=== PATIENT | female | born 1940 | race Caucasian/White ===

== ENCOUNTER → 2016-09-14 | Outpatient (CLI) | payer MEDICARE, BC ==
[2016-09-14 08:09] LABS: CH 30.2; CHCM 32.4; HCT 43.1 % (34.0-46.0); HDW 2.07; HGB 14.4 gm/dL (11.4-16.0); MCH 31.2 pg (25.0-35.0); MCHC 33.3 g/dL (31.0-37.0); MCV 93.5 fL (80.0-100.0); Mean Platelet Volume 6.7; RBC 4.61 m/uL (3.80-5.40); RDW 13.7 % (11.5-15.5); WBC 5.2 k/uL (3.8-10.6)
[2016-09-14 08:32] LABS: ALT 22 U/L (9-52); AST 22 U/L (14-36); Alkaline Phosphatase 77 U/L (38-126); Anion Gap 11 mmol/L; Blood Urea Nitrogen 27 mg/dL (7-17); Calcium 9.1 mg/dL (8.4-10.2); Carbon Dioxide 26 mmol/L (22-30); Chloride 103 mmol/L (98-107); Cholesterol 203 mg/dL (<200); Glucose 93 mg/dL (74-99); HDL Cholesterol 61 mg/dL (40-60); Non-African American GFR(MDRD) >60 (>60 ml/min/1.73 sqM); Sodium 140 mmol/L (137-145); Total Bilirubin 0.6 mg/dL (0.2-1.3); Triglycerides 101 mg/dL (<150)
== END | disposition home or self-care (01) ==
LOC: LABWHC1 07:00
PROVIDERS: ATTEND Internal Medicine
DX: E87.8 Other disorders of electrolyte and fluid balance, not elsewhere classified (principal); E78.4 Other hyperlipidemia; R53.83 Other fatigue
CPT/HCPCS: 36415; 80053; 80061; 85027

== ENCOUNTER → 2017-09-20 | Outpatient (CLI) | payer MEDICARE, BC ==
[2017-09-20 07:58] LABS: HCT 45.3 % (34.0-46.0); HGB 14.6 gm/dL (11.4-16.0); MCH 29.2 pg (25.0-35.0); MCHC 32.2 g/dL (31.0-37.0); MCV 90.5 fL (80.0-100.0); Mean Platelet Volume 6.8; Platelet Count 284 k/uL (150-450); RBC 5.01 m/uL (3.80-5.40); RDW 13.9 % (11.5-15.5); WBC 5.4 k/uL (3.8-10.6)
[2017-09-20 08:25] LABS: ALT 29 U/L (9-52); AST 22 U/L (14-36); Alkaline Phosphatase 92 U/L (38-126); Anion Gap 12 mmol/L; Blood Urea Nitrogen 23 mg/dL (7-17); Calcium 9.1 mg/dL (8.4-10.2); Carbon Dioxide 29 mmol/L (22-30); Chloride 103 mmol/L (98-107); Cholesterol 201 mg/dL (<200); Glucose 102 mg/dL (74-99); HDL Cholesterol 56 mg/dL (40-60); LDL Cholesterol,Calculated 116 mg/dL (0-99); Sodium 144 mmol/L (137-145); Total Bilirubin 0.5 mg/dL (0.2-1.3); Total Protein 6.6 g/dL (6.3-8.2); Triglycerides 144 mg/dL (<150)
== END | disposition home or self-care (01) ==
LOC: LABWHC1 07:23
PROVIDERS: ATTEND Internal Medicine
DX: E78.4 Other hyperlipidemia (principal); E87.8 Other disorders of electrolyte and fluid balance, not elsewhere classified; R53.83 Other fatigue
CPT/HCPCS: 36415; 80053; 80061; 85027

== ENCOUNTER → 2018-02-19 | Outpatient (CLI) | payer MEDICARE, BC ==
--- NOTE | 2018-02-21 08:51 | US ---
EXAMINATION TYPE: US pelvic complete DATE OF EXAM: 02/19/2018 COMPARISON: US, MRI 02/27/2017 CLINICAL HISTORY: R10.2 Pelvic And Perineal Pain. F/U previous, postmenopausal pt TECHNIQUE: Transabdominal (TA). Transabdominal sonographic images of the pelvis were acquired. EXAM MEASUREMENTS: Uterus: 6.1 x 2.5 x 4.4 cm Endometrial Stripe: 0.5 cm Right Ovary: 1.2 x 0.6 x 1.3 cm Left Ovary: 1.5 x 0.7 x 1.4 cm cm 1. Uterus: Anteverted Heterogeneous with 2 probable fibroids as seen on previous 1)= 2.5 x 1.9 x 2 .7 cm, previously measuring 2.0 x 2.0 x 2.5 cm/ 2nd fibroid= 1.4 x 1.0 x 1.4 cm, previously measuring 1.9 x 1.9 x 2.1 cm 2. Endometrium: fluid still present within canal, unchanged from previous 3. Right Ovary: wnl 4. Left Ovary: wnl 5. Bilateral Adnexa: wnl 6. Posterior cul-de-sac: wnl IMPRESSION: 1. Probable leiomyomatous uterus. 2. Small amount of fluid within the endometrial canal.
== END | disposition home or self-care (01) ==
LOC: RADUSWWP 14:03
PROVIDERS: ATTEND Internal Medicine
DX: R10.2 Pelvic and perineal pain (principal); D25.9 Leiomyoma of uterus, unspecified
CPT/HCPCS: 76856

== ENCOUNTER → 2018-05-18 | Outpatient (CLI) | payer MEDICARE, BC ==
[2018-05-18 09:34] LABS: HCT 46.7 % (34.0-46.0); HGB 14.7 gm/dL (11.4-16.0); MCH 29.9 pg (25.0-35.0); MCHC 31.5 g/dL (31.0-37.0); MCV 95.1 fL (80.0-100.0); Mean Platelet Volume 7.1; Platelet Count 333 k/uL (150-450); RBC 4.91 m/uL (3.80-5.40); WBC 8.9 k/uL (3.8-10.6)
== END | disposition home or self-care (01) ==
LOC: LABWHC1 08:14
PROVIDERS: ATTEND Physician Assistant
DX: R21 Rash and other nonspecific skin eruption (principal)
CPT/HCPCS: 36415; 82565; 84450; 84460; 84520; 85027

== ENCOUNTER → 2018-09-21 | Outpatient (CLI) | payer MEDICARE, BC ==
[2018-09-21 07:32] LABS: HCT 42.6 % (34.0-46.0); HGB 13.9 gm/dL (11.4-16.0); MCH 29.7 pg (25.0-35.0); MCHC 32.6 g/dL (31.0-37.0); MCV 91.1 fL (80.0-100.0); Mean Platelet Volume 6.5; Platelet Count 272 k/uL (150-450); RBC 4.67 m/uL (3.80-5.40); RDW 14.4 % (11.5-15.5); WBC 5.2 k/uL (3.8-10.6)
[2018-09-21 11:53] LABS: Albumin 4.1 g/dL (3.80-4.90); Albumin/Globulin Ratio 2.05 (1.60-3.17); Anion Gap 8.5 mmol/L (4.00-12.00); Calcium 9.4 mg/dL (8.7-10.3); Carbon Dioxide 29.5 mmol/L (21.6-31.8); Potassium 3.6 mmol/L (3.5-5.5); Total Bilirubin 0.5 mg/dL (0.2-1.2); Total Protein 6.1 g/dL (6.2-8.2)
== END | disposition home or self-care (01) ==
LOC: LABWHC1 07:06
PROVIDERS: ATTEND Internal Medicine
DX: E87.8 Other disorders of electrolyte and fluid balance, not elsewhere classified (principal); E53.8 Deficiency of other specified B group vitamins; R53.83 Other fatigue; E78.41 Elevated Lipoprotein(a)
CPT/HCPCS: 36415; 80053; 80061; 82607; 84439; 84443; 85027

== ENCOUNTER → 2019-02-15 | Outpatient (CLI) | payer MEDICARE, BC ==
--- NOTE | 2019-02-15 15:02 | US ---
EXAMINATION TYPE: US thyroid st tissue head/neck DATE OF EXAM: 02/15/2019 COMPARISON: NONE CLINICAL HISTORY: R22.0 Localized Swelling, mass.... Right lateral cheek palpable x 1 year. TECHNIQUE/FINDINGS: Grayscale and color imaging were obtained of the palpable abnormality on the righ t in the area of concern. Corresponding to the palpable abnormality there is a superficial hypoechoic lesion visualized measuring 1.1 x 1.0 x 0.7 cm with internal vascular flow seen. This is a solid mas s and percutaneous biopsy would be advised, however prior to this MRI of the face would be recommende d to evaluate for any continuity with the adjacent parotid gland, better spatial resolution and furth er characterization. Contralateral image taken. IMPRESSION: Solid vascular mass corresponds to the palpable abnormality. MRI prior to biopsy with co ntrast of the face would be recommended to evaluate anatomic location and better characterization.
--- NOTE | 2019-02-15 15:08 | US ---
EXAMINATION TYPE: US transvaginal DATE OF EXAM: 02/15/2019 COMPARISON: 02/19/2018 CLINICAL HISTORY: D25.9 Fibroids, R22.0 Localized Swelling, mass.... Follow up fibroids. Patient sta kevin she has been doing holistic treatment through medication. TECHNIQUE: Transvaginal (TV). Date of LMP: SEQUINS STRINGER, G0 EXAM MEASUREMENTS: Uterus: 4.2 x 2.9 x 3.3 cm Endometrial Stripe: 0.2 cm 1. Uterus: Anteverted Appears small and heterogenous. Two prominent lesions visualized. 1- right fundal possible pedunculated = 2.1 x 2.5 x 1.9 cm. 2- right mid/KRAIG= 1.6 x 1.6 x 1.5 cm . These prev iously measured 2.5 x 1.9 x 2.7 cm and 1.4 x 1.0 x 1.4 cm. 2. Endometrium: Fluid visualized with internal echoes 3. Right Ovary: Obscured by overlying bowel gas 4. Left Ovary: Obscured by overlying bowel gas 5. Bilateral Adnexa: wnl 6. Posterior cul-de-sac: no free fluid IMPRESSION: Abnormal exam. There is a moderate amount of free fluid in endometrium, abnormal for a po stmenopausal female. Direct visualization and sampling should be considered. 2 heterogenous areas of partially obscuring the endometrium that appear similar to prior measurements, probable leiomyomas. N onvisualization of the ovaries.
== END | disposition home or self-care (01) ==
LOC: RADUSWWP 14:06
PROVIDERS: ATTEND Family Medicine
DX: R94.6 Abnormal results of thyroid function studies (principal); R93.5 Abnormal findings on diagnostic imaging of other abdominal regions, including retroperitoneum; D25.9 Leiomyoma of uterus, unspecified
CPT/HCPCS: 76536; 76830

== ENCOUNTER → 2019-02-22 | Outpatient (CLI) | payer MEDICARE, BC ==
--- NOTE | 2019-02-22 19:01 | ECHOF ---
Referral Reason:R01.1 Cardiac murmur, unspecified MEASUREMENTS -------- HEIGHT: 162.6 cm WEIGHT: 71.7 kg BP: RVIDd: 2.5 cm (< 3.3) IVSd: 1.7 cm (0.6 - 1.1) LVIDd: 3.8 cm (3.9 - 5.3) LVPWd: 1.5 cm (0.6 - 1.1) IVSs: 1.8 cm LVIDs: 3.2 cm LVPWs: 1.7 cm LA Diam: 3.3 cm (2.7 - 3.8) LAESV Index (A-L): 24.05 ml/m Ao Diam: 3.2 cm (2.0 - 3.7) AV Cusp: 0.7 cm (1.5 - 2.6) LA Diam: 3.2 cm (2.7 - 3.8) MV EXCURSION: 13.666 mm (> 18.000) MV EF SLOPE: 165 mm/s (70 - 150) EPSS: 0.5 cm MV E Sagar: 0.40 m/s MV A Sagar: 0.78 m/s MV E/A Ratio: 0.51 AV maxP.41 mmHg AV meanP.02 mmHg RAP: 5.00 mmHg RVSP: 29.15 mmHg FINDINGS -------- Undetermined rhythm. This was a technically adequate study. The left ventricular size is normal. There is severe concentric left ventricular hypertrophy. Ove rall left ventricular systolic function is mild-moderately impaired with, an EF between 40 - 45 %. Apical inferior LV wall motion is hypokinetic. Anterseptal Hypokinesis [place] Hypokinesis. Dista l Septal Hypokinesis. The right ventricle is normal in size. The left atrial size is normal. The right atrial size is normal. There is moderate aortic stenosis present. Peak/mean gradient across the Aortic Valve is 26.41mmHg / 13.02mmHg. Mild mitral regurgitation is present. Mild tricuspid regurgitation present. Right ventricular systolic pressure is normal at < 35 mmHg. There is no evidence of pulmonary hypertension. There is no pulmonic regurgitation present. The aortic root size is normal. There is no pericardial effusion. CONCLUSIONS -------- 1. Undetermined rhythm. 2. This was a technically adequate study. 3. The left ventricular size is normal. 4. There is severe concentric left ventricular hypertrophy. 5. Overall left ventricular systolic function is mild-moderately impaired with, an EF between 40 - 45 %. 6. Apical inferior LV wall motion is hypokinetic. 7. Anterseptal Hypokinesis 8. [place] Hypokinesis. 9. Distal Septal Hypokinesis. 10. The right ventricle is normal in size. 11. The left atrial size is normal. 12. The right atrial size is normal. 13. There is moderate aortic stenosis present. 14. Peak/mean gradient across the Aortic Valve is 26.41mmHg / 13.02mmHg. 15. Mild mitral regurgitation is present. 16. Mild tricuspid regurgitation present. 17. Right ventricular systolic pressure is normal at < 35 mmHg. 18. There is no evidence of pulmonary hypertension. 19. There is no pulmonic regurgitation present. 20. The aortic root size is normal. 21. There is no pericardial effusion. FLOOR SUPERVISOR: Caitlin King RDCS
== END | disposition home or self-care (01) ==
LOC: RADECHMAIN 14:50
PROVIDERS: ATTEND Family Medicine
DX: I08.1 Rheumatic disorders of both mitral and tricuspid valves (principal)
CPT/HCPCS: 93306

== ENCOUNTER → 2019-03-05 | Outpatient (CLI) | payer MEDICARE, BC ==
--- NOTE | 2019-03-05 16:03 | CT ---
EXAMINATION TYPE: CT soft tissue neck w con DATE OF EXAM: 03/05/2019 HISTORY: Lump to right cheek x 1 year. COMPARISON: NONE CT DLP: 315.5 mGycm. Automated Exposure Control for Dose Reduction was Utilized. TECHNIQUE: CT scan of the neck is performed with IV Contrast, patient injected with 100 mL of Isovue M300, axial images are obtained, coronal and sagittal reformatted images are reviewed. FINDINGS: Airway: No gross abnormality seen. Parotid/submandibular glands: Right possible parotid gland lesion as detailed below in the other sect ion. Otherwise the parotid glands and submandibular glands are symmetric and unremarkable. Carotid/Vascular Structures: There is a conventional three-vessel branch pattern of the aortic arch. The common carotid arteries are patent without hemodynamically significant stenosis. The carotid bulb s are also patent with minimal calcific nonhemodynamically significant stenosis on the left. Visualiz ed portions of the internal carotid arteries are also patent. The vertebral arteries are patent and c odominant. Osseous Structures: Mild multilevel degenerative changes of the spine. Paranasal sinuses and mastoid air cells are well aerated other than scant mucosal thickening of the ethmoid sinuses. Other: The lung apices are well aerated other than biapical pleural parenchymal scarring. There is a 0.7 x 0.9 cm hyperdense mass superficial to the right masseter muscle that could represent the patient's palpable abnormality of the right cheek. No BB marker is placed. This is seen at the p eriphery of the anterior aspect of the superficial portion of the right parotid gland. This is partia lly obscured such as on image 63 by extensive spray artifact from the patient's dental fillings. IMPRESSION: A 0.9 cm mass overlying the right masseter muscle is at the peripheral margin of the paro tid gland and largely obscured by spray artifact from the patient's dental fillings. 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 This is less likely an epidermal inclusion cyst as this appears deep to the skin surface with a fat plane between the lesion and skin on both ultrasound and CT. Ultrasound-guide d biopsy fine-needle aspiration could be considered for definitive diagnosis.
== END | disposition home or self-care (01) ==
LOC: RADCTMAIN 13:55
PROVIDERS: ATTEND Otolaryngology
DX: K11.8 Other diseases of salivary glands (principal)
CPT/HCPCS: 82565; 84520; 70491; 36415; Q9967

== ENCOUNTER → 2019-04-02 | Outpatient (CLI) | payer MEDICARE, BC ==
[2019-04-02 09:00] LABS: HCT 44.4 % (34.0-46.0); HGB 14.5 gm/dL (11.4-16.0); MCH 29.9 pg (25.0-35.0); MCHC 32.6 g/dL (31.0-37.0); MCV 91.6 fL (80.0-100.0); Mean Platelet Volume 5.9; Platelet Count 339 k/uL (150-450); RBC 4.85 m/uL (3.80-5.40); RDW 13.2 % (11.5-15.5); WBC 5.7 k/uL (3.8-10.6)
[2019-04-02 09:37] LABS: Potassium 4.3 mmol/L (3.5-5.1)
== END ==
LOC: LABPAT 08:36
PROVIDERS: ATTEND Internal Medicine Interventional Cardiology
DX: Z01.812 Encounter for preprocedural laboratory examination (principal); I35.0 Nonrheumatic aortic (valve) stenosis; E78.5 Hyperlipidemia, unspecified
CPT/HCPCS: 36415; 80051; 82565; 82947; 84520; 85027

== ENCOUNTER 2019-04-10 06:09 | Day surgery (SDC) | payer MEDICARE, BC ==
[2019-04-08 12:08] VITALS: BMI 26.6
[2019-04-10] MEDS ORDERED: ALPRAZolam 0.5 MG TAB PO PRN (06:23)
[2019-04-10] MEDS ORDERED: SODIUM CHLORIDE 0.9% 1,000 ML in EMPTY BAG 1 BAG IV ONE (06:23)
[2019-04-10] MEDS ORDERED: NITROGLYCERIN SL TABS 0.4 MG TAB SUBLINGUAL PRN (06:23)
[2019-04-10] MEDS ORDERED: ALPRAZolam 0.25 MG TAB PO PRN (06:23)
[2019-04-10] MEDS ORDERED: ATORVASTATIN 80 MG TAB PO ONE (07:00)
[2019-04-10] MEDS ORDERED: ASPIRIN 325 MG TAB PO ONE (07:00)
[2019-04-10 07:03] VITALS: RESP 16; TEMP 97.8
[2019-04-10] MEDS ORDERED: LIDOCAINE 1% INJ 10MG/ML (20 ML MDV) ONE (07:26)
[2019-04-10] MEDS ORDERED: VERAPAMIL 2.5 MG/ML 2 ML AMP ONE (07:29)
[2019-04-10] MEDS ORDERED: fentaNYL (PF) 50 MCG/ML 2 ML AMP ONE (07:36)
[2019-04-10] MEDS ORDERED: fentaNYL (PF) 50 MCG/ML 2 ML AMP IVP ONE (07:38)
[2019-04-10] MEDS ORDERED: LIDOCAINE 1% INJ 10MG/ML (20 ML MDV) SQ ONE (07:44)
[2019-04-10] MEDS ORDERED: VERAPAMIL SYRINGE (5 MG/10 ML) INTRAARTER ONE (07:45)
[2019-04-10] MEDS ORDERED: HEPARIN SODIUM 1,000 UN/ML (10ML VL) ONE (07:50)
[2019-04-10] MEDS ORDERED: HEPARIN SODIUM 1,000 UN/ML (10ML VL) IV ONE (07:52)
[2019-04-10] MEDS ORDERED: IOPAMIDOL-370 125ML BTL INJ ONE (07:59)
[2019-04-10] MEDS ORDERED: RX INFO: IV CONTRAST WAS GIVEN 1 EACH MISC MISCELLANE PRN (08:15)
[2019-04-10] MEDS ORDERED: SODIUM CHLORIDE 0.9% 1,000 ML IV SCH (08:15)
--- NOTE | 2019-04-10 08:41 | CC ---
CARDIAC CATHETERIZATION REPORT Mrs. Atwood is a 78-year-old female who is followed by Dr. Aponte, has a history of left bundle branch block, was noted to have a cardiomyopathy and aortic stenosis of mild to moderate degree. In view of the cardiomyopathy and the segmental wall motion abnormality, recommendation made regarding cardiac catheterization. The procedures, risks, and complication were discussed with the patient who is in full understanding and agreement. PROCEDURE: Patient was brought to the skilled labor in a fasting semi-sedated state after receiving fentanyl and Benadryl and achieving moderate conscious sedated state. Using Xylocaine anesthesia and Seldinger technique, a 6-Mosotho sheath was introduced in the right radial artery. Selective right and left coronary angiography were performed using 5- Mosotho 3.5right and left Salomon catheter, multiple views of the coronary artery including hemiaxial views obtained. Following that 5-Mosotho tight pigtail catheter was introduced in the left ventricle and a 30-degree GAMEZ view of the left ventricle was obtained. Following that, catheter and sheath were removed. Hemostasis was obtained with deployment of a TR band. There was no immediate complication. Patient is returned to room in stable condition. Of note, the patient received 4500 units of intravenous heparin as well as intra-arterial verapamil. There was no immediate complication. FLUOROSCOPY: There was calcification involving the aortic valve. LEFT MAIN: This is a short size vessel large in caliber bifurcating left circumflex, left anterior descending artery. Left main coronary artery has no evidence of high- grade stenosis. LEFT ANTERIOR DESCENDING ARTERY: This is a large-sized vessel, reaching toward the apex, giving rise to 2 diagonal branches. After the takeoff of the first diagonal branch, there is 10% plaque. The rest of the vessel has no high-grade stenosis. LEFT CIRCUMFLEX: This is a nondominant vessel, large in caliber, giving rise to four obtuse marginal branches. The left circumflex as well as branches have no evidence of obstructive coronary artery disease. RIGHT CORONARY ARTERY: This is a dominant vessel, large in caliber, bifurcating distally into PDA and posterolateral segment branches. The right coronary artery in the mid segment has 10% to 20% stenosis. There was no evidence of high-grade stenosis. LEFT VENTRICULOGRAM Left ventriculogram is performed in 30-degree GAMEZ view revealed no normal left ventricular size and systolic function. The ejection fraction is 55%. There was no significant mitral regurgitation. HEMODYNAMICS: There was an about a 10 mm peak gradient across the aortic valve the left ventricular end-diastolic pressure was 12-14 mmHg. CONCLUSION: 1. Calcified aortic valve with mild gradient of 10 mmHg. 2. Mild non obstructive disease involving the LAD and the right coronary artery. 3. Normal left ventricular size systolic function. RECOMMENDATION: In view of finding anatomy, would recommend to continue medical therapy with aggressive coronary risk modifications that have been initiated. Those findings and recommendation were discussed with the patient and her family who are in full understanding and agreement. Duration of procedure 19 minutes. MMODL / IJN: [id number] / KEKE
--- NOTE | 2019-04-10 08:44 | LTR ---
DATE OF SERVICE: 04/10/2019 RE: Jackie Atwood Dear Dr. Hahn; I had the pleasure to perform cardiac catheterization on Mrs. Atwood at [facility] on April 10, 2019. A full copy of the procedure note will be forwarded to you. In brief, she was found to have mild obstructive disease involving the LAD and the right coronary artery with preserved left ventricular size and systolic function and mild gradient across the aortic valve and based on those findings, I recommend continue medical therapy and thank you again for allowing me to participate in your patient's care. Please feel free to call for any questions. Sincerely yours, Jax Petty MD MMNINIL / TALYAN: [id number] /
[2019-04-10] MEDS ORDERED: CARVEDILOL 3.125 MG TAB PO SCH (09:00)
[2019-04-10] MEDS ORDERED: NON FORMULARY DRUG (Aspirin Ec 81 MG) PO SCH (09:00)
[2019-04-10] MEDS ORDERED: LOSARTAN 25 MG TAB PO SCH (09:00)
[2019-04-10] MEDS ORDERED: NON FORMULARY DRUG (Acyclovir [Acyclovir] 400 MG) PO SCH (09:00)
[2019-04-10 10:03] VITALS: BP 160/78; PULSE 72
[2019-04-10] MEDS ORDERED: amLODIPine 5 MG TAB PO SCH (21:00)
== END 2019-04-10 13:05 | disposition home or self-care (01) ==
LOC: CATHCVL 06:09
PROVIDERS: ATTEND Internal Medicine Interventional Cardiology
DX: I25.10 Atherosclerotic heart disease of native coronary artery without angina pectoris (principal); I35.0 Nonrheumatic aortic (valve) stenosis; I44.7 Left bundle-branch block, unspecified; I42.8 Other cardiomyopathies; I10 Essential (primary) hypertension; E78.00 Pure hypercholesterolemia, unspecified; E78.5 Hyperlipidemia, unspecified; Z79.82 Long term (current) use of aspirin; Z79.890 Hormone replacement therapy; Z79.899 Other long term (current) drug therapy
CPT/HCPCS: 93458; C1769 ×2; C1894; J2001; J3010; J1644; Q9967

== ENCOUNTER → 2021-09-01 | Outpatient (CLI) | payer MEDICARE, BC ==
--- NOTE | 2021-09-02 08:18 | BD ---
EXAMINATION TYPE: Axial Bone Density DATE OF EXAM: 09/01/2021 COMPARISON: 08/19/2013 CLINICAL HISTORY: 80 years year old Female. ICD-10 CODE: M89.9 BONE DISORDER Height: 63.7 IN Weight: 156 LBS FRAX RISK QUESTIONS: History of Fracture in Adulthood: RT HIP FX AGE 39 Secondary Osteoporosis: 3. Menopause before 45: AGE 41 RISK FACTORS HISTORY OF: Hip Fracture (Right): YES AGE 39 Family History of Osteoporosis: SISTER Active: YES Diet low in dairy products/other sources of calcium: YES Postmenopausal woman: AGE 41 Adrenal Insufficiency: YES MEDICATIONS: Thyroid Medications: YES Which medication: Levothyroxine How Lon+ YEARS Additional Medications: VIT D, STRONTIUM,LEVOTHYROXINE, KLONOPIN, TRAZODONE, ACYCLOVIR, CARVEDILOL, L IPITOR, L-ARGENINE, ZINC, AMLODIPINE, GLUCOSAMINE CHONDROITINE, MAGNESIUM OIL, CURCUMIN, VIT C, PROBI OTICS,VIT C, ATORVASTATIN, ELOQUIS, LOSARTAN EXAM MEASUREMENTS: Bone mineral densitometry was performed using the [employer] System. Bone mineral density as measured about the Lumbar spine is: ----- L1-L4(G/cm2): 1.077 T Score Values are as follows: ----- L1: -1.8 ----- L2: -0.9 ----- L3: -0.2 ----- L4: -0.7 ----- L1-L4: -0.9 Bone mineral density has: Increased 15.3% since study of: 08/19/2013 PT STATES RT HIP FX AGE 39. Bone mineral density about the L hip (g/cm2): 0.767 T Score values are as follows: -----L Neck: -1.9 -----L Total: -1.6 Bone mineral density has: Increased 1.1% since study of: 08/19/2013 FRAX%s: The graph provided illustrates a 22.4 chance for a major osteoporotic fx and a 6.2 chance for the hips probability for fx in 10 years time. IMPRESSION: Osteopenia (T Score between -2.5 and -1). There is slightly increased risk of fracture and the patient may be considered for treatment. Re-Screen 2-5 years. NOTE: T-SCORE=SD OF THE YOUNG ADULT MEAN.
== END | disposition home or self-care (01) ==
LOC: RADBDWWP 16:18
PROVIDERS: ATTEND Internal Medicine
DX: M85.89 Other specified disorders of bone density and structure, multiple sites (principal); Z78.0 Asymptomatic menopausal state
CPT/HCPCS: 77080

== ENCOUNTER 2022-01-12 05:44 | Day surgery (SDC) | payer MEDICARE, BC ==
[2022-01-11 11:39] VITALS: BMI 26.2
[~2022-01-12 05:44] MED LIST: ALPRAZolam 0.25 MG TAB PO PRN; ALPRAZolam 0.5 MG TAB PO PRN; NITROGLYCERIN SL TABS 0.4 MG TAB SUBLINGUAL PRN; SODIUM CHLORIDE 0.9% 1,000 ML in EMPTY BAG 1 BAG IV SCH
[2022-01-12 06:37] VITALS: RESP 18; TEMP 97.5
[2022-01-12 06:37] LABS: Glucose,Whole Blood 117 mg/dL (70-110)
[2022-01-12] MEDS ORDERED: ASPIRIN 325 MG TAB PO ONE (07:00)
[2022-01-12 07:12] LABS: African American GFR (CKD) >90 (>60 ml/min/1.73 sqM); Anion Gap 8 mmol/L; Blood Urea Nitrogen 29 mg/dL (7-17); Calcium 9.2 mg/dL (8.4-10.2); Carbon Dioxide 27 mmol/L (22-30); Chloride 103 mmol/L (98-107); Glucose 117 mg/dL (74-99); Non-African American GFR(CKD) 82 (>60 ml/min/1.73 sqM); Potassium 4.3 mmol/L (3.5-5.1); Sodium 138 mmol/L (137-145)
[2022-01-12 07:23] LABS: Basophils % (A) 1 %; Eosinophils % (A) 0 %; HCT 45.4 % (34.0-46.0); HGB 14.7 gm/dL (11.4-16.0); Lymphocytes % (A) 38 %; MCH 30.2 pg (25.0-35.0); MCHC 32.5 g/dL (31.0-37.0); MCV 92.8 fL (80.0-100.0); Mean Platelet Volume 7.5; Monocytes # (A) 0.6 k/uL (0-1.0); Monocytes % (A) 11 %; Neutrophils # (A) 2.5 k/uL (1.3-7.7); Neutrophils % (A) 48 %; Platelet Count 272 k/uL (150-450); RBC 4.89 m/uL (3.80-5.40); RDW 14.7 % (11.5-15.5); WBC 5.2 k/uL (3.8-10.6)
[2022-01-12] MEDS ORDERED: HEPARIN SODIUM 1,000 UN/ML (10ML VL) ONE (07:23)
[2022-01-12] MEDS ORDERED: fentaNYL (PF) 50 MCG/ML 2 ML AMP ONE (07:23)
[2022-01-12] MEDS ORDERED: VERAPAMIL 2.5 MG/ML 2 ML AMP ONE (07:23)
[2022-01-12] MEDS ORDERED: fentaNYL (PF) 50 MCG/ML 2 ML AMP IV ONE (08:04)
[2022-01-12] MEDS ORDERED: LIDOCAINE 1% INJ 10MG/ML (30 ML VIAL-PF) SQ ONE (08:07)
[2022-01-12] MEDS ORDERED: VERAPAMIL SYRINGE (5 MG/10 ML) INTRAARTER ONE (08:09)
[2022-01-12] MEDS ORDERED: MIDAZOLAM 2 MG/2 ML VIAL IVP ONE (08:10)
[2022-01-12] MEDS ORDERED: HEPARIN SODIUM 1,000 UN/ML (10ML VL) IVP ONE (08:25)
[2022-01-12 08:31] LABS: O2 Sat Blood Gas 92.1 %
[2022-01-12] MEDS ORDERED: IOPAMIDOL-370 125ML BTL INJ ONE (08:31)
[2022-01-12 08:32] LABS: O2 Sat Blood Gas 79.7 %
[2022-01-12] MEDS ORDERED: RX INFO: IV CONTRAST WAS GIVEN 1 EACH MISC MISCELLANE PRN (08:40)
[2022-01-12] MEDS ORDERED: SODIUM CHLORIDE 0.9% 1,000 ML IV SCH (08:45)
--- NOTE | 2022-01-12 08:50 | P.CARDCATH ---
Date of Procedure: 01/12/22 Description of Procedure: Cardiac Catheterization: The patient is an 81-year-old female with history of hypertension, hyperlipidemia, moderate aortic stenosis and cardiomyopathy who has been followed by Dr. Aponte and has progressive dyspnea. Recommendations were made regarding cardiac catheterization, the risks and the complications were discussed with the patient who is in full understanding and agreement. Procedure Description: Patient was brought to chemical laboratory tester in fasting semi-sedated state after receiving Fentanyl and Benadryl achieiving moderate conscious sedated state. Using Xylocaine Anesthesia and Seldinger technique, a 6-English sheath was introduced in the right radial artery , the venous access in the right basilic vein was exchanged to a 6-English sheath. Right heart catheterization was performed using a [place]-Barrett catheter, multiple pressure and samples were obtained. Subsequently, selective coronary angiography was performed using a 5-English 3.5 bend Salomon catheter. Multiple views of the coronary artery including hemiaxial views were obtained. The right Salomon catheter was used to cross the aortic valve and LVEDP was calculated. Following that, catheter and sheath were removed. Hemostasis was obtained with deployment of TR band . There was no immediate complication. Patient was returned to room in stable condition. Of note, the patient received a total of 3500 units of intravenous heparin as well as intra-arterial verapamil. Findings: Left main: This is a large size vessel, bifurcating into LAD and left circumflex, left main has no high-grade stenosis LAD: This is a large size vessel, reaching to the apex, giving rise to a large diagonal branch. At the takeoff of the diagonal branch there is a 10% plaque involving the ostium of the diagonal branch Left circumflex: This is a large nondominant vessel, giving rise to 3 obtuse marginal branch, the left circumflex and its branches have no evidence of high- grade stenosis RCA: This is a large dominant vessel, bifurcating into PDA and PLV. The mid RCA has 10-20% plaque with no high-grade stenosis Left Ventriculogram: Not performed Hemodynamics: Cardiac output by Sky of 9.5 L and by thermodilution 5.6 L/m. Right atrial saturation 78%, pulmonary artery saturation 80%, arterial saturation 92%. Pulmonary artery systolic pressure of 20 with a diastolic of 4 and a mean of 10 mmHg, pulmonary Vein wedge pressure A wave of 9, V wave of 6 with a mean of 4., Right ventricle systolic pressure of 22 with an end- diastolic of 3 mmHg, right atrium A wave of 2 V wave of 1 with a mean of 1 mmHg, LVEDP was 6-8 mmHg, the peak gradient across the aortic valve was 23 mmHg, aortic valve area of 1.34 cm Fluoroscopy: There is severe calcifications involving the aortic valve Conclusion: 1. Mild coronary artery disease involving the RCA and the LAD 2. Normal right-sided pressure 3. Mild to moderate aortic stenosis 4. Right dominance Recommendations: I would recommend medical therapy, I see no evidence of significant aortic valve disease or coronary artery disease to explain her symptoms. The findings and the recommendations were discussed with the patient and she is in full understanding and agreement. Duration of sedation is 27 minutes.
[2022-01-12] MEDS ORDERED: NON FORMULARY DRUG (Losartan Potassium [Losartan Potassium] 100 MG Tablet) PO SCH (09:00)
[2022-01-12] MEDS ORDERED: NON FORMULARY DRUG (Acyclovir [Acyclovir] 400 MG Tablet) PO SCH (09:00)
[2022-01-12] MEDS ORDERED: carvediloL 6.25 MG TAB PO SCH (09:00)
[2022-01-12] MEDS ORDERED: LEVOTHYROXINE 50 MCG TAB PO SCH (09:00)
[2022-01-12 13:32] VITALS: BP 116/64; PULSE 68
[2022-01-12] MEDS ORDERED: NON FORMULARY DRUG (Ropinirole Hcl [Requip] 0.5 MG Tablet) PO SCH (21:00)
[2022-01-12] MEDS ORDERED: amLODIPine 5 MG TAB PO SCH (21:00)
[2022-01-12] MEDS ORDERED: NON FORMULARY DRUG (Trazodone Hcl [Trazodone Hcl] 150 MG Tablet) PO SCH (21:00)
[2022-01-12] MEDS ORDERED: ATORVASTATIN 10 MG TAB PO SCH (21:00)
== END 2022-01-12 13:50 | disposition home or self-care (01) ==
LOC: CATHCVL 05:44
PROVIDERS: ATTEND Internal Medicine Interventional Cardiology
DX: I25.10 Atherosclerotic heart disease of native coronary artery without angina pectoris (principal); I10 Essential (primary) hypertension; E78.00 Pure hypercholesterolemia, unspecified; I42.9 Cardiomyopathy, unspecified; E78.5 Hyperlipidemia, unspecified; Z20.822 Contact with and (suspected) exposure to COVID-19; I35.0 Nonrheumatic aortic (valve) stenosis; I44.7 Left bundle-branch block, unspecified; Z79.82 Long term (current) use of aspirin; Z79.899 Other long term (current) drug therapy; I48.0 Paroxysmal atrial fibrillation; Z86.16 Personal history of COVID-19; I51.7 Cardiomegaly; Z79.01 Long term (current) use of anticoagulants; Z79.890 Hormone replacement therapy
CPT/HCPCS: 93460; 80048; 85018; 82810; 85025; 87635; C1769 ×3; C1894; C1751; J2250; J2001; J3010; J1644; Q9967

== ENCOUNTER → 2023-03-29 | Outpatient (CLI) | payer MEDICARE, BC ==
[2023-03-29 16:13] LABS: BUN/Creat Ratio 29.25 Ratio (12.00-20.00); Blood Urea Nitrogen 23.4 mg/dL (9.0-27.0); Calcium 9.8 mg/dL (8.7-10.3); Carbon Dioxide 28.1 mmol/L (21.6-31.8); Chloride 103 mmol/L (96-109); Glucose 108 mg/dL (70-110); Magnesium 2.2 mg/dL (1.5-2.4); Potassium 4.8 mmol/L (3.5-5.5); Sodium 142 mmol/L (135-145)
== END | disposition home or self-care (01) ==
LOC: LABWHC1 11:34
PROVIDERS: ATTEND Internal Medicine Clinical Cardiac Electrophysiology
DX: I10 Essential (primary) hypertension (principal)
CPT/HCPCS: 36415; 80048; 83735; 84443

== ENCOUNTER → 2023-07-10 | Outpatient (CLI) | payer MEDICARE, BC ==
[2023-07-11 05:40] LABS: Clam IgE <0.10 kU/L; Codfish IgE <0.10 kU/L; Egg White IgE <0.10 kU/L; Peanut IgE <0.10 kU/L; Scallop IgE <0.10 kU/L; Shrimp IgE <0.10 kU/L; Soybean IgE <0.10 kU/L; Walnut IgE (Food) <0.10 kU/L
[2023-07-11 10:38] LABS: Beef IgE <0.10 kU/L (<0.10); Beef IgE Class CLASS 0; Gluten IgE Class CLASS 0; Pork IgE Class CLASS 0; Yeast Bakers/Brew IgE <0.10 kU/L (<0.10); Yeast Bakers/Brew IgE Class CLASS 0
[2023-07-11 10:39] LABS: Chicken IgE Class CLASS 0; Chocolate IgE Class CLASS 0; Latex IgE Class CLASS 0
== END | disposition home or self-care (01) ==
LOC: LABWHC1 13:40
PROVIDERS: ATTEND Otolaryngology
DX: L50.0 Allergic urticaria (principal)
CPT/HCPCS: 36415; 82785; 86001; 86003

== ENCOUNTER → 2024-02-29 | Outpatient (CLI) | payer MEDICARE, BC ==
[2024-02-29 16:52] VITALS: BP 130/71; PULSE 64; RESP 16; TEMP 97.5
--- NOTE | 2024-02-29 17:33 | P.SLEEP ---
History of Present Illness DATE: 02/29/2024 CONSULTATION/NEW PATIENT EVALUATION HISTORY OF PRESENT ILLNESS/SLEEP-WAKE EVALUATION: 83-year-old lady had been evaluated in the sleep center for possible obstructive sleep apnea hypopnea syndrome. SLEEP SCHEDULE: Usually sleep schedule from 912 PM until 58 AM. FALLING ASLEEP: Patient has difficulties with falling asleep. DURING SLEEP: Patient snores and wakes up from sleep 4 times with nocturia. Restless leg symptoms no history of hypnogogical hallucinations, sleep paralysis, or cataplexy. DURING THE DAY/WAKE STATE: Patient denied any significant excessive daytime sleepiness. [place] sleepiness scale is 3. Usually patient does not take naps. PAST MEDICAL HISTORY: Hypertension, hypothyroidism. PAST SURGICAL HISTORY: Tonsillectomy, appendectomy, tubal ligation. MEDICATIONS: Please see below. SOCIAL HISTORY: Please see below. FAMILY HISTORY: Cancer, insomnia, restless legs, diabetes. REVIEW OF SYSTEMS: Snoring, multiple awakenings from sleep. No fevers. No double vision. No recent chest pain. No shortness of breath. No abdominal pain. No bleeding episodes. No blood in urine. No seizure episodes. PHYSICAL EXAMINATION: GENERAL: A pleasant patient without any distress. VITAL SIGNS: Please see below, weight 168 pounds, BMI 28.8. HEENT: PERRLA, EOMI. Evaluation of oropharynx showed tongue protrudes midline, low position of soft palate Mallampati 4, retrognathia 1 to 2 mm. NECK: Supple. No JVD. Thyroid is not palpable. 13.5 inches in circumference. LUNGS: Clear to percussion and to auscultation. Good air exchange. No wheezing or rhonchi. HEART: S1, S2 regular. Systolic murmur, mostly on aortic area. ABDOMEN: Soft and nontender. Bowel sounds are present. No organomegaly appreciated. EXTREMITIES: No clubbing or cyanosis. HELP DESK SUPPORT: Awake, alert, and oriented x3. Cranial nerves 2 to 7 intact. There is no fasciculation or atrophy noted. No focal deficits observed. ASSESSMENT: 1. Snoring, multiple awakenings from sleep, extremely low position of soft palate Mallampati 4, retrognathia. Possible obstructive sleep apnea hypopnea syndrome. 2. Hypertension. 3. Hypothyroidism. 4. Restless leg symptoms. 5 hyperlipidemia. 6 . Systolic murmur on aorta. PLAN: 1. Polysomnography for evaluation of patient's breathing during sleep. 2. Following plan after reading sleep study 3. Preferable position during sleep on the side. 4. No driving if patient feels any sleepiness. Patient is aware of civil and criminal liability for unsafe driving. 5. Sleep hygiene with regular sleep time for at least 7.5-8 hours. 6. Watching weight. Thank you very much for referring this patient for consultation. Sincerely, Reza Barron MD, PhD, FAASM. Diplomat of [employer] [employer], Sleep Medicine Board by [employer] Pharmacy Assistant of [facility] [place] cc: Liu Unger MD Past Medical History Past Medical History: Hyperlipidemia, Hypertension, Thyroid Disorder Additional Past Medical History / Comment(s): COVID 19 symptoms on 05/29/2021 History of Any Multi-Drug Resistant Organisms: None Reported Past Surgical History: Appendectomy, Heart Catheterization, Tonsillectomy, Tubal Ligation Additional Past Surgical History / Comment(s): BILAT CATARACTS REMOVED WITH LENS IMPLANTS. COLONOSCOPY Past Anesthesia/Blood Transfusion Reactions: No Reported Reaction Past Psychological History: Anxiety, Depression Smoking Status: Never smoker Past Alcohol Use History: None Reported Additional Past Alcohol Use History / Comment(s): SMOKED 1 YEAR A TEEN Past Drug Use History: None Reported - Past Family History Father Family Medical History: Cancer Additional Family Medical History / Comment(s): COLON CANCER WITH METS Mother Additional Family Medical History / Comment(s): iNSOMNIA Sister(s) Additional Family Medical History / Comment(s): hx rESTLESS LEGS Medications and Allergies Home Medications Medication Instructions Recorded Confirmed Type Acyclovir 400 mg PO TID 05/28/14 02/29/24 History Levothyroxine Sodium [Synthroid] 50 mcg PO DAILY 04/08/19 02/29/24 History Atorvastatin Calcium [Lipitor] 10 mg PO HS 06/01/21 01/12/22 History Apixaban [Eliquis] 5 mg PO BID 30 Days #60 tab 06/08/21 02/29/24 Rx Losartan Potassium 100 mg PO DAILY 01/11/22 02/29/24 History amLODIPine [Norvasc] 5 mg PO HS 01/11/22 02/29/24 History carvediloL [Coreg] 6.25 mg PO BID 01/11/22 02/29/24 History rOPINIRole HCL [Requip] 0.5 mg PO HS 01/11/22 02/29/24 History traZODone HCL 150 mg PO HS 01/11/22 01/12/22 History Aspirin 325 mg PO DAILY PRN 01/12/22 02/29/24 History Melatonin [Melatonin ER] 10 mg PO HS PRN 02/29/24 02/29/24 History Montelukast [Singulair] 10 mg PO DAILY PRN 02/29/24 History Rosuvastatin [Crestor] 10 mg PO DAILY 02/29/24 02/29/24 History Allergies Allergy/AdvReac Type Severity Reaction Status Date / Time No Known Allergies Allergy Verified 01/12/22 06:16 Physical Exam Vitals: Vital Signs Temp Pulse Resp BP Pulse Ox 02/29/24 16:51 97.5 F L 64 16 130/71 96 Intake and Output 02/29/24 02/29/24 02/29/24 06:59 14:59 22:59 Other: Weight 168 kg Sleep Note - Sleep Data ESS Total: 3 - Sleep Note Sleep Note: Temperature: 97.5 F Pulse Rate: 64 Respiratory Rate: 16 Blood Pressure: 130/71 SpO2: 96 Height: 5 ft 4 in Weight: 168 kg BMI: Neck Circumference: 13.5
== END ==
LOC: 3 N SLEEP 16:18
PROVIDERS: ATTEND Internal Medicine
DX: R06.83 Snoring (principal); I10 Essential (primary) hypertension; M26.19 Other specified anomalies of jaw-cranial base relationship; E03.9 Hypothyroidism, unspecified; G25.81 Restless legs syndrome; E78.5 Hyperlipidemia, unspecified; R01.1 Cardiac murmur, unspecified; Z79.899 Other long term (current) drug therapy; Z79.01 Long term (current) use of anticoagulants
CPT/HCPCS: 99211